=== PATIENT | female | born 1965 | race Two or more races ===

== ENCOUNTER 2016-05-16 21:23 | Emergency (ER) | payer BC, OTHER ==
[~2016-05-16] VITALS: Ht 157.5 cm; Wt 80.3 kg
[2016-05-16] MEDS ORDERED: IBUPROFEN 600 MG TABLET PO ONE ×2 (22:05→22:30)
[2016-05-16 23:41] VITALS: BP 128/96
== END 2016-05-16 23:30 | disposition home or self-care (01) ==
LOC: ER 21:24
DX: S16.1XXA Strain of muscle, fascia and tendon at neck level, initial encounter (principal); V49.40XA Driver injured in collision with unspecified motor vehicles in traffic accident, initial encounter; Y93.89 Activity, other specified; Y92.89 Other specified places as the place of occurrence of the external cause; Y99.9 Unspecified external cause status
CPT/HCPCS: 72125; 99284; A4606; Z7610

== ENCOUNTER 2020-02-24 10:08 | Emergency (ER) | payer BC, OTHER ==
[~2020-02-24] VITALS: Ht 154.9 cm; Wt 81.6 kg
[2020-02-24 10:30] VITALS: BP 156/104
[2020-02-24] MEDS ORDERED: ACETAMINOPHEN 325 MG TABLET PO ONE (11:00)
[2020-02-24] MEDS ORDERED: GUAIFENESIN/D-METHORPHAN HB 5 ML UDC PO ONE (11:00)
[2020-02-24] MEDS ORDERED: ACETAMINOPHEN 325 MG TABLET ONE (11:10)
[2020-02-24] MEDS ORDERED: GUAIFENESIN/D-METHORPHAN HB 5 ML UDC ONE (11:10)
== END 2020-02-24 11:57 | disposition home or self-care (01) ==
LOC: ER 10:14
DX: U07.1 COVID-19 (principal); J12.89 Other viral pneumonia
CPT/HCPCS: 71045; 87811; 99284; C9803 ×2; U0003

== ENCOUNTER 2020-08-01 04:13 | Emergency (ER) | payer BC, OTHER ==
[~2020-08-01] VITALS: Ht 157.5 cm; Wt 84.8 kg
[2020-08-01] MEDS ORDERED: ONDANSETRON HCL/PF 4 MG/2 ML VIAL IVP ONE (04:30)
[2020-08-01] MEDS ORDERED: IV NS 0.9% 1,000 ML BAG IV ONE (04:30)
[2020-08-01] MEDS ORDERED: DICYCLOMINE HCL INJ 20 MG/2 ML AMPUL IM ONE ×2 (04:30→04:41)
[2020-08-01] MEDS ORDERED: ONDANSETRON HCL/PF 4 MG/2 ML VIAL ONE (04:31)
[2020-08-01 04:41] LABS: BASOPHILS % (AUTO) 0.2 % (0.0-2.0); LYMPHOCYTES # (AUTO) 0.7 /CMM (0.8-4.8); MONOCYTES # (AUTO) 0.5 /CMM (0.1-1.30); MONOCYTES % (AUTO) 4.1 % (2.0-12.0); NEUTROPHILS # (AUTO) 10.7 /CMM (1.8-8.9); PLATELET COUNT (AUTO) 340 /CMM (150-450); RED BLOOD CELL COUNT(AUTO) 4.86 MIL/uL (4.0-5.2)
[2020-08-01 04:43] LABS: BILIRUBIN,URINE Negative (NEGATIVE); COLOR,URINE YELLOW (YELLOW); LEUKOCYTE ESTERASE ,URINE Negative (NEGATIVE); NITRITE, URINE Negative (NEGATIVE); PROTEIN,URINE Negative (NEGATIVE); UGLUCOSE Negative (NEGATIVE)
[2020-08-01 04:46] LABS: HEMATOCRIT 33 % (33-45); HEMOGLOBIN 10.2 g/dL (11.5-14.8); MEAN CORPUSCULAR HGB CONC 31 g/dl (31.0-36.0); MEAN CORPUSCULAR VOLUME 69 fL (82-100); NEUTROPHILS % (AUTO) 87.7 % (43.0-81.0); WHITE BLOOD COUNT (AUTO) 12.3 K/uL (4.3-11.0)
[2020-08-01 04:51] LABS: CREATININE 1.1 mg/dL (0.6-1.3)
[2020-08-01 04:57] LABS: ALBUMIN 3.9 g/dL (3.4-5.0); BILIRUBIN,DIRECT 0.1 mg/dL (0.0-0.2); BILIRUBIN,TOTAL 0.6 mg/dL (0.2-1.0); TOTAL PROTEIN, SERUM 7.9 g/dL (6.4-8.2)
[2020-08-01] MEDS ORDERED: ONDA4TAB5 PO (05:01)
--- NOTE | 2020-08-01 05:48 | NUR ---
IV removed. Catheter intact and site benign. Pressure and 4x4 applied to site. No bleeding noted. Patient discharged to home in stable condition. Written and verbal after care instructions given. Patient verbalizes understanding of instruction.
[2020-08-01 06:00] LABS: EOSINOPHILS % (MANUAL) 5 % (0-4); LYMPHOCYTES % (MANUAL) 6 % (16-48); MONOCYTES % (MANUAL) 3 % (0-11.0); NEUTROPHILS % (MANUAL) 86 (42-76)
[2020-08-01 06:35] VITALS: BP 131/79
== END 2020-08-01 06:35 | disposition home or self-care (01) ==
LOC: ER 04:15
DX: K52.9 Noninfective gastroenteritis and colitis, unspecified (principal); Z79.899 Other long term (current) drug therapy
CPT/HCPCS: 36415; 80048; 80076; 81003; 83690; 85007; 85025; 96361; 96372; 96374; 99284; J0500; J2405; J7030